=== PATIENT | female | born 1980 | race Caucasian/White ===

== ENCOUNTER → 2016-08-09 | Outpatient (CLI) | payer OTHER ==
[~2016-08-09] MED LIST: LEVO75TA PO; OMEG10007 PO; PRENTAB26 PO
== END | disposition home or self-care (01) ==
LOC: C.LAB 13:22
PROVIDERS: ATTEND Obstetrics & Gynecology
DX: E03.9 Hypothyroidism, unspecified (principal)

== ENCOUNTER → 2016-09-04 | Outpatient (CLI) | payer OTHER | END | disposition home or self-care (01) | LOC: C.LAB 12:11 | PROVIDERS: ATTEND Obstetrics & Gynecology | DX: E03.9 Hypothyroidism, unspecified (principal) ==

== ENCOUNTER → 2016-09-19 | Outpatient (CLI) | payer OTHER | END | disposition home or self-care (01) | LOC: C.LABSPEC 15:19 | PROVIDERS: ATTEND Obstetrics & Gynecology | DX: Z34.83 Encounter for supervision of other normal pregnancy, third trimester (principal) ==

== ENCOUNTER 2016-10-04 07:26 | Inpatient (IN) | payer OTHER ==
--- NOTE | 2016-09-26 18:37 | HISTORY & PHYSICAL EXAMINATION ---
DATE OF ADMISSION: 10/06/2016 CHIEF COMPLAINT: Intrauterine , 39+ weeks' gestation, 2 previous sections. HISTORY OF PRESENT ILLNESS: The patient is a 36-year-old 7, para 2. She has had 4 spontaneous ABs. Her general health is good. She is on thyroid replacement, the dose has recently been changed and knee and it was upped and TSH was under 2. OBSTETRICAL HISTORY: As follows: 2011 - she had a girl, 7 pounds at 38 weeks. She was insulin-dependent, gestational diabetic and section was done for suspected macrosomia. In 2014 - she had another girl, 7 pounds 8 ounces at 39+ weeks gestation, repeat . Present has been well dated. She had a 7-week ultrasound, which gave her due date of 10/08/2016. She has had her thyroid medications adjusted once. Otherwise, she is doing well and is presently being scheduled for repeat section. PAST MEDICAL HISTORY: She has 2 girls in good health. ALLERGIES: She has no known drug allergies. PAST SURGICAL HISTORY: She has had 2 C-sections, 3 D\T\Cs and a uterine septum removed at [facility]. PAST MEDICAL HISTORY: She has history of hypothyroidism which was discovered during one of her pregnancies. SOCIAL HISTORY: No smoking. No alcohol intake. FAMILY HISTORY: Noncontributory. REVIEW OF SYSTEMS: No symptoms of frequent or severe headaches, ear infections, nosebleed, sore throats, kidney or bladder infections. PHYSICAL EXAMINATION: GENERAL: Well-developed, well-nourished 36-year-old white female, alert, oriented x3 and cooperative, in no acute distress, appears her stated age. EYES: Conjunctivae are pink, sclerae white, no evidence of jaundice. EARS: Had normal light reflex bilaterally. NOSE: Had normal mucosa. Septum is midline. There were no polyps. THROAT: No erythema or evidence of infection. Teeth are in good state of repair. HEAD: Normocephalic, normal distribution of hair. NECK: Supple. Trachea midline. Thyroid is not enlarged. There is no adenopathy appreciated. Both carotids are of good intensity. CHEST: Clear to auscultation and percussion. No wheezes, rales or rhonchi appreciated. HEART: Had regular rhythm. S1 and S2 are normal. BREASTS: Normal. ABDOMEN: Revealed term size fetus, vertex presentation, there is a well-healed Pfannenstiel incision. MUSCULOSKELETAL: Revealed no calf tenderness. PELVIC: Vertex presentation. Cervix is anterior and closed. MTDD
--- NOTE | 2016-09-28 09:53 | PAT Medication Instructions ---
Service Date Sep 28, 2016. Current Home Medication List Fish Oil (Waycross-3), 2 CAP PO BID Levothyroxine Sodium (Synthroid), 75 MCG PO QAM Multivit/Min/Iron/Fol Ac/Pren ( Vitamin), 1 TAB PO QAM Medication Instructions For Your Scheduled Surgery - Hold the following medications starting 09/28/16: Fish Oil (Waycross-3), 2 CAP PO BID - Hold the following medications the morning of surgery: Multivit/Min/Iron/Fol Ac/Pren ( Vitamin), 1 TAB PO QAM - Take the following medications the morning of surgery with a sip of water: Levothyroxine Sodium (Synthroid), 75 MCG PO QAM If you have any questions please call us at [phone] (Krystal Aguilar PA-C) or [phone] or [phone]
[2016-09-28 10:47] LABS: BLOOD UREA NITROGEN 9 mg/dl (7-18); CALCIUM 9.1 mg/dl (8.5-10.1); CARBON DIOXIDE 24 mmol/L (21-32); CHLORIDE 108 mmol/L (98-107); CREATININE 0.55 mg/dl (0.60-1.20); GLUCOSE 103 mg/dl (70-99); POTASSIUM 3.8 mmol/L (3.5-5.1); SODIUM 140 mmol/L (136-145)
[2016-09-28 10:51] LABS: INR 0.9 (0.9-1.1); PROTHROMBIN TIME (PATIENT) 9.4 SECONDS (9.0-12.0)
[2016-09-28 11:25] LABS: HEMATOCRIT 37.6 % (37-47); MEAN CELL VOLUME 95.2 fL (80-100); MEAN CORPUSCULAR HEMOGLOBIN 32.4 pg (25-34); MEAN PLATELET VOLUME 12.7 fL (7.4-10.4); PLATELET COUNT 109 K/uL (130-400); RED BLOOD COUNT 3.95 M/uL (4.2-5.4); WHITE BLOOD COUNT 4.28 K/uL (4.8-10.8)
[2016-09-28 11:27] LABS: BASO % 0.2 %; BASO ABS # 0.01 K/uL (0-0.2); COMPLETE YES; EOS % 0.7 %; GIANT PLATELETS 1+; IG% 0.5 %; LYMPH % 25.5 %; LYMPH ABS # 1.09 K/uL (1.2-3.4); MONO % 7.2 %; NEUT % 65.9 %; PLT ESTIMATE DECREASED
[~2016-10-04] VITALS: Ht 165.1 cm; Wt 94.5 kg
[2016-10-06] VITALS (7 sets, daily range): BP systolic 108–124; BP diastolic 66–74; PULSE 84–99; TEMP 36.6–36.8; O2SAT 96–98; Ht 165.1 cm; Wt 94.5 kg
[2016-10-06] MEDS ORDERED: CITRIC ACID/SODIUM CITRATE 15 ML UDC PO SCH (06:00)
[2016-10-06] MEDS ORDERED: LACTATED RINGER'S 1000ML 1,000 ML IV SCH (06:00)
[2016-10-06] MEDS ORDERED: CEFOXITIN IV 2,000 MG in DEXTROSE 5% 50ML 50 ML IV SCH (08:00)
[2016-10-06] MEDS ORDERED: CEFOXITIN SOD 2 GM VIAL IV STA (08:18)
[2016-10-06] MEDS ORDERED: OXYTOCIN INJ 10 UNITS/ML VIAL ONE ×2 (09:05→10:36)
[2016-10-06] MEDS ORDERED: EpHEDrine SULFATE INJ 50 MG/ML AMP ONE (09:05)
[2016-10-06] MEDS ORDERED: MoRPHine SULFATE PF 1 MG/ML 10 ML AMP/VIAL ONE (09:05)
[2016-10-06] MEDS ORDERED: FENTANYL CITRATE INJ 50 MCG/1 ML 2 ML VIAL ONE (09:05)
[2016-10-06] MEDS ORDERED: ONDANSETRON INJ 2 MG/ML 2 ML VIAL ONE ×2 (09:05→11:11)
[2016-10-06 09:11] LABS: HEMATOCRIT 35.6 % (37-47); MEAN CELL VOLUME 92.7 fL (80-100); MEAN CORPUSCULAR HEMOGLOBIN 32.3 pg (25-34); MEAN CORPUSCULAR HGB CONC 34.8 g/dl (32-36); MEAN PLATELET VOLUME 12.7 fL (7.4-10.4); PLATELET COUNT 118 K/uL (130-400); RED BLOOD COUNT 3.84 M/uL (4.2-5.4)
[2016-10-06] MEDS ORDERED: EpHEDrine SULFATE 50MG/5ML SYR ONE (10:23)
[2016-10-06] MEDS ORDERED: BENZOCAINE 20% AER SPR 82.5 GM CAN EXT PRN (11:15)
[2016-10-06] MEDS ORDERED: LANOLIN OINT EXT PRN ×2 (11:15)
[2016-10-06] MEDS ORDERED: MAGNESIUM HYDROXIDE SUSP 30 ML UDC PO PRN (11:15)
[2016-10-06] MEDS ORDERED: SENNA 8.6 MG TAB PO PRN (11:15)
[2016-10-06] MEDS ORDERED: DIPHTHERIA/TETANUS/PERTUSSIS 0.5 ML SYR/VIAL IM. ONE (11:15)
[2016-10-06] MEDS ORDERED: SUPERCREAM 0.870 % 15GM JAR EXT PRN (11:15)
[2016-10-06] MEDS ORDERED: HYDROCORTISONE ACETATE 25 MG SUPP PR PRN (11:15)
[2016-10-06] MEDS ORDERED: NALOXONE HCL INJ 0.08 MG in SYRINGE 1.8 ML IV PRN (11:19)
[2016-10-06] MEDS ORDERED: SODIUM CHLORIDE 0.9% 1000ML 1,000 ML IV PRN (11:19)
[2016-10-06] MEDS ORDERED: LACTATED RINGER'S 1000ML 500 ML IV PRN (11:19)
--- NOTE | 2016-10-06 11:21 | Anesthesiology Progress Note ---
Anesthesia Post Op Note Date & Time Oct 06, 2016 at 11:20 Notes Mental Status: alert / awake / arousable, participated in evaluation Pt Amnestic to Procedure: No Nausea / Vomiting: adequately controlled Pain: adequately controlled Airway Patency, RR, SpO2: stable & adequate BP & HR: stable & adequate Hydration State: stable & adequate Neuraxial Anesthesia: was administered, sensory block is resolving Anesthetic Complications: no major complications apparent Pt had C/S under spinal for h/o previous C/S. Her anesthetic course was uneventful. Recall as expected. Post-op vitals BP 130/65, HR 75, RR 18, SpO2 100 % on RA, T 36.5.
[2016-10-06] MEDS ORDERED: MoRPHine SULFATE 2 MG/ML CARP IV PRN (11:30)
[2016-10-06] MEDS ORDERED: NALBUPHINE HCL INJ 10 MG/ML AMP IV PRN (11:30)
[2016-10-06] MEDS ORDERED: MoRPHine SULFATE PF 1 MG/ML 10 ML AMP/VIAL EPI PRN (11:30)
[2016-10-06] MEDS ORDERED: EpHEDrine SULFATE INJ 50 MG/ML AMP IV PRN (11:30)
[2016-10-06] MEDS ORDERED: KETOROLAC TROMETHAMINE 30 MG/ML VIAL IV. PRN (11:30)
[2016-10-06] MEDS ORDERED: NALOXONE HCL 0.4 MG/1 ML VIAL/CARP IV PRN (11:30)
[2016-10-06] MEDS ORDERED: DC INTRASPINAL MORPHINE SCH (11:30)
[2016-10-06] MEDS ORDERED: MEPERIDINE HCL 25 MG/ML CARP IV PRN (11:30)
[2016-10-06] MEDS ORDERED: DiphenhydrAMINE HCL 50 MG/ML VIAL IV PRN (11:30)
[2016-10-06] MEDS ORDERED: ONDANSETRON INJ 2 MG/ML 2 ML VIAL IV PRN (11:30)
[2016-10-06] MEDS ORDERED: PROMETHAZINE HCL INJ 25 MG in SODIUM CHLORIDE 0.9% 50ML 50 ML IV PRN (11:30)
[2016-10-06] MEDS ORDERED: NO NARCOTICS OR SEDATIVES SCH (11:30)
[2016-10-06] MEDS: OXYTOCIN INJ 20 UNITS in LACTATED RINGER'S 1000ML 1,000 ML IV SCH ×2 (12:00→20:14)
--- NOTE | 2016-10-06 12:38 | OPERATIVE REPORT ---
DATE OF OPERATION: 10/06/2016 PROCEDURE: Repeat low segment section. PREOPERATIVE DIAGNOSES: 1. Intrauterine at term. 2. Two previous sections. POSTOPERATIVE DIAGNOSES: Same, delivered live male . SURGEON: Dr. Wilson. TEACHER EARLY CHILDHOOD DEVELOPMENT: Dr. Wicho Lovell. ESTIMATED BLOOD LOSS: 500 mL ANESTHESIA: Spinal. OPERATIVE FINDINGS AND PROCEDURE: The patient was brought to the OR table, correctly identified by armband and conversation. Compression stockings had been applied. A Gamez catheter had been inserted aseptically and connected to gravity drainage. Lower abdomen was painted with Betadine paint, draped in usual sterile fashion. Level of anesthesia was tested. A Pfannenstiel incision was then made by excising a prior scar and then dissecting down to the anterior fascia. Fascia was incised transversely, from the underlying muscle by blunt and sharp dissection. Recti muscles were in the midline, exposing the peritoneum which was carefully raised and entered. An incision was made in the lower uterine segment above the bladder reflection and uterine cavity was entered, amniotic fluid was clear, and with a vectis retractor, a live was delivered. There was a nuchal cord x1 that had to be reduced over the head. Then, the body of the infant was delivered without difficulty. Cord was clamped and cut. Cord blood was taken. Placenta was removed manually. Uterine cavity was cleansed with a clean sponge. Uterus, tubes and ovaries were brought out through the incision, inspected and found to be normal. The lower uterine segment was repaired using first a deep layer of chromic gut suture and then a second layer over this of heavy Vicryl and there were some [id number] sutures, about 4 of them, that were placed on the edges where there was oozing. Following this, pelvis was cleansed off all blood clots and debris. Uterus, tubes and ovaries were inserted into the incision. Careful anatomical approximation of the anterior abdominal wall was performed. Peritoneum was closed with a mattress suture of chromic catgut. Recti muscles were approximated with interrupted [id number] suture of chromic catgut. Fascia was closed with continuous interlocking suture of Vicryl on each side, tied in the midline. Subcu was approximated with a running plain. Skin edges were approximated with staple clips. I attest to the content of the Intraoperative Record and any orders documented therein. Any exceptio ns are noted below.
[2016-10-06] MEDS: SIMETHICONE 80 MG CHEW PO SCH ×3 (13:00→20:00)
[2016-10-06] MEDS: DOCUSATE SODIUM 100 MG CAP PO SCH (20:00)
[2016-10-07] VITALS (8 sets, daily range): BP systolic 97–110; BP diastolic 58–72; PULSE 88–91; TEMP 36.4–36.8; O2SAT 95–96
[2016-10-07] MEDS: OXYTOCIN INJ 20 UNITS in LACTATED RINGER'S 1000ML 1,000 ML IV SCH (03:53)
[2016-10-07] MEDS ORDERED: MEPERIDINE HCL 75 MG/ML CARP IV PRN (04:00)
[2016-10-07] MEDS ORDERED: KETOROLAC TROMETHAMINE 30 MG/ML VIAL IV. PRN (04:00)
[2016-10-07] MEDS ORDERED: MEPERIDINE HCL 50 MG/ML CARP IV PRN (04:00)
[2016-10-07] MEDS ORDERED: ZOLPIDEM TARTRATE 5 MG TAB PO PRN (04:00)
[2016-10-07] MEDS ORDERED: ONDANSETRON INJ 2 MG/ML 2 ML VIAL IV PRN (04:00)
[2016-10-07] MEDS ORDERED: OXYCODONE/ACETAMINOPHEN 5-325 TAB PO PRN (04:00)
[2016-10-07] MEDS ORDERED: DiphenhydrAMINE HCL 50 MG/ML VIAL IV PRN (04:00)
[2016-10-07 07:28] LABS: MEAN CELL VOLUME 94.9 fL (80-100); MEAN CORPUSCULAR HEMOGLOBIN 32.9 pg (25-34); MEAN CORPUSCULAR HGB CONC 34.7 g/dl (32-36); MEAN PLATELET VOLUME 12.3 fL (7.4-10.4); PLATELET COUNT 88 K/uL (130-400); RED BLOOD COUNT 3.16 M/uL (4.2-5.4); WHITE BLOOD COUNT 4.92 K/uL (4.8-10.8)
[2016-10-07 07:29] LABS: BASO % 0.2 %; BASO ABS # 0.01 K/uL (0-0.2); COMPLETE YES; EOS % 0.8 %; IG% 0.2 %; LARGE PLATELETS 1+; LYMPH ABS # 1.18 K/uL (1.2-3.4); MONO % 6.3 %; NEUT % 68.5 %; PLT ESTIMATE DECREASED
[2016-10-07] MEDS: DOCUSATE SODIUM 100 MG CAP PO SCH ×2 (09:11→21:05)
[2016-10-07] MEDS: SIMETHICONE 80 MG CHEW PO SCH ×4 (09:11→21:05)
[2016-10-07] MEDS: FERROUS SULFATE 325 MG TAB PO SCH (09:11)
[2016-10-07] MEDS: PRENATAL VITAMIN TAB PO SCH (09:11)
[2016-10-07] MEDS: IBUPROFEN 600 MG TAB PO PRN ×2 (09:12→21:04)
[2016-10-07] MEDS: OXYCODONE/ACETAMINOPHEN 5-325 TAB PO PRN ×2 (09:12→21:04)
--- NOTE | 2016-10-07 10:59 | Progress Note ---
Subjective Oct 07, 2016. Subjective conversation w/ patient Ambulation: ambulating normally Voiding: no voiding problems Passing Gas: Yes Diet Tolerance: Clear Liquids Lochia: Small Feeding Type: Breast Feeding Review of Systems Constitutional: + fever Objective Vital Signs Date Time Temp Pulse Resp B/P Pulse Ox O2 Delivery O2 Flow Rate FiO2 10/07/16 08:00 36.8 91 18 97/63 96 Room Air 10/07/16 08:00 96 Room Air 10/07/16 03:50 36.4 90 18 110/72 96 Room Air 10/07/16 03:15 18 96 10/07/16 02:00 18 95 10/07/16 01:15 18 96 10/07/16 00:15 20 96 10/06/16 23:30 36.6 91 20 108/66 98 Room Air 10/06/16 23:30 98 Room Air 10/06/16 23:30 20 98 10/06/16 22:15 18 98 10/06/16 22:15 84 18 124/74 98 Room Air 10/06/16 20:15 36.7 90 18 109/72 96 Room Air 10/06/16 20:15 18 96 10/06/16 19:15 18 97 10/06/16 18:15 18 98 10/06/16 17:15 18 96 10/06/16 16:15 97 Room Air 10/06/16 16:15 36.8 99 18 114/74 97 Room Air 10/06/16 16:15 18 97 10/06/16 16:15 97 Room Air Physical Exam General Appearance: WELL-APPEARING Fundus: Firm, Boggy Incision Description: Clean, Dry & Intact Extremities: no pedal edema, no calf tenderness Laboratory Results Last 24 Hours Test 10/07/16 06:17 White Blood Count 4.92 K/uL Red Blood Count 3.16 M/uL Hemoglobin 10.4 g/dL Hematocrit 30.0 % Mean Corpuscular Volume 94.9 fL Mean Corpuscular Hemoglobin 32.9 pg Mean Corpuscular Hemoglobin Concent 34.7 g/dl Platelet Count 88 K/uL Mean Platelet Volume 12.3 fL Neutrophils (%) (Auto) 68.5 % Lymphocytes (%) (Auto) 24.0 % Monocytes (%) (Auto) 6.3 % Eosinophils (%) (Auto) 0.8 % Basophils (%) (Auto) 0.2 % Neutrophils # (Auto) 3.37 K/uL Lymphocytes # (Auto) 1.18 K/uL Monocytes # (Auto) 0.31 K/uL Eosinophils # (Auto) 0.04 K/uL Basophils # (Auto) 0.01 K/uL RDW Standard Deviation 45.9 fL RDW Coefficient of Variation 13.2 % Immature Granulocyte % (Auto) 0.2 % Immature Granulocyte # (Auto) 0.01 K/uL Platelet Estimate DECREASED Large Platelets 1+ Assessment and Plan Post-Op Day#: 1
[2016-10-07] MEDS ORDERED: BISACODYL 5 MG TABEC PO ONE (22:00)
[2016-10-08 00:25] VITALS: BP 93/59; PULSE 101; TEMP 36.5
[2016-10-08 07:20] VITALS: BP 110/70; PULSE 91; TEMP 36.7; O2SAT 96
[2016-10-08] MEDS: DOCUSATE SODIUM 100 MG CAP PO SCH ×2 (07:34→19:44)
[2016-10-08] MEDS: LEVOTHYROXINE 75 MCG TAB PO SCH (07:34)
[2016-10-08] MEDS: FERROUS SULFATE 325 MG TAB PO SCH (07:34)
[2016-10-08] MEDS: PRENATAL VITAMIN TAB PO SCH (07:34)
[2016-10-08] MEDS: IBUPROFEN 600 MG TAB PO PRN ×3 (07:35→18:34)
[2016-10-08] MEDS: SIMETHICONE 80 MG CHEW PO SCH ×4 (07:35→19:44)
[2016-10-08] MEDS: OXYCODONE/ACETAMINOPHEN 5-325 TAB PO PRN ×3 (07:35→18:35)
--- NOTE | 2016-10-08 08:29 | Progress Note ---
Subjective Oct 08, 2016. Subjective conversation w/ patient Ambulation: ambulating normally Voiding: no voiding problems Passing Gas: Yes Diet Tolerance: Regular Diet Lochia: Small Feeding Type: Breast Feeding Review of Systems Constitutional: + fever Objective Vital Signs Date Time Temp Pulse Resp B/P Pulse Ox O2 Delivery O2 Flow Rate FiO2 10/08/16 07:20 36.7 91 18 110/70 Room Air 10/08/16 07:20 96 Room Air 10/08/16 00:25 Room Air 10/08/16 00:25 36.5 101 18 93/59 Room Air 10/07/16 16:00 36.7 89 18 102/67 Room Air 10/07/16 16:00 Room Air 10/07/16 11:40 36.7 88 18 100/58 Room Air Physical Exam General Appearance: WELL-APPEARING Respiratory/Chest: lungs clear Abdomen: normal bowel sounds, non tender Fundus: Firm, Non-Tender Incision Description: Clean, Dry & Intact Extremities: no pedal edema, no calf tenderness Laboratory Results Last 24 Hours Test 10/07/16 11:34 Thyroid Stimulating Hormone (TSH) 2.680 uIu/ml Assessment and Plan Post-Op Day#: 2
[2016-10-08] MEDS ORDERED: BISACODYL 10 MG SUPP PR PRN (11:15)
[2016-10-08 16:15] VITALS: BP 108/68; PULSE 93; TEMP 36.6; O2SAT 94
[2016-10-08 23:55] VITALS: BP 112/74; PULSE 82; TEMP 36.4; O2SAT 98
[2016-10-09] MEDS: IBUPROFEN 600 MG TAB PO PRN ×2 (02:30→10:50)
[2016-10-09] MEDS: LEVOTHYROXINE 75 MCG TAB PO SCH (07:20)
[2016-10-09] MEDS: DOCUSATE SODIUM 100 MG CAP PO SCH (07:20)
[2016-10-09] MEDS: SIMETHICONE 80 MG CHEW PO SCH (07:20)
[2016-10-09] MEDS: PRENATAL VITAMIN TAB PO SCH (07:20)
[2016-10-09] MEDS: FERROUS SULFATE 325 MG TAB PO SCH (07:21)
[2016-10-09 07:30] VITALS: BP 120/82; PULSE 86; TEMP 36.5
[2016-10-09 08:23] VITALS: BP_DIAS 82; PULSE 86; TEMP 36.5
--- NOTE | 2016-10-09 09:14 | Progress Note ---
Subjective Oct 09, 2016. Subjective conversation w/ patient Ambulation: ambulating normally Voiding: no voiding problems Passing Gas: Yes Diet Tolerance: Regular Diet Lochia: Small Feeding Type: Breast Feeding Review of Systems Constitutional: + fever Objective Vital Signs Date Time Temp Pulse Resp B/P Pulse Ox O2 Delivery O2 Flow Rate FiO2 10/09/16 08:23 36.5 86 16 10/09/16 07:30 36.5 86 16 120/82 10/09/16 07:30 Room Air 10/08/16 23:55 98 Room Air 10/08/16 23:55 36.4 82 20 112/74 Room Air 10/08/16 16:15 36.6 93 18 108/68 94 Room Air 10/08/16 16:15 94 Room Air Physical Exam General Appearance: WELL-APPEARING Respiratory/Chest: lungs clear Abdomen: normal bowel sounds, non tender Fundus: Firm, Non-Tender Incision Description: Clean, Dry & Intact Extremities: no pedal edema, no calf tenderness Assessment and Plan Post-Op Day#: 3
--- NOTE | 2016-10-09 09:16 | Discharge Instructions ---
Discharge Instructions Date of Service Oct 09, 2016. Admission Reason for Admission: Term , Previous Section Discharge Discharge Diagnosis / Problem: previous section Discharge Goals Goal(s): Routine recovery after Activity Recommendations Activity Limitations: as noted below ACTIVITY RECOMMENDATIONS: * Gradual return to full activity over the next 2-3 weeks. * No lifting - nothing heavier than baby over the next 2-3 weeks. * Do not engage in vigorous exercise, sexual activity or sports for 6 weeks. * Do not drive or operate any motorized equipment for 14 days. * You may shower/bathe daily. DIET: Resume Previous Diet If Breast-feeding: * Increase caloric intake by 500 calories, eat 3 well balanced meals, 2 high protein snacks a day and drink 6-8 8oz. glasses of fluid per day. BREAST CARE: If you are not breast feeding: * Wear a supportive bra 24 hours a day for one to two weeks. * Avoid stimulating your breasts and nipples as much as possible during the first few weeks after delivery. * When taking a shower, have the warm water hit your back, not breasts. * When your breasts feel full, apply ice packs. Usually three to four times a day helps ease the discomfort. * Take a mild pain medication (Tylenol / Motrin) when you are uncomfortable. If breast feeding: * Use breast milk to lubricate nipples. Lansinoh cream may be used for sore nipples. You do not need to remove cream prior to breast feeding. If using a different brand of cream, check the label for directions regarding removal of cream prior to nursing. * Wear a supportive bra. * If having problems with breasts or breast feeding, call a business management consultant or your health care provider. VITAMINS: * One tablet daily. Continue taking while or until you have your check up in 6 weeks. SPECIAL CARE INSTRUCTIONS: * Vaginal rest (no tampons, douching, intercourse) until after doctor's visit. * control as discussed with doctor. * Verbalizes understanding of car seat law as reviewed with patient by nursing. * Car Seat hand-out given and reviewed with patient by nursing. * Shaken baby information reviewed with patient by nursing. Call you doctor if: * Heavy bleeding (saturating a pad an hour) or passing clots the size of your fist. Bleeding has a foul smelling odor. * A fever greater than 100.4 degrees F (38 degrees C) on two occasions four hours apart and/or chills. * Unusual pain in the pelvic or vaginal areas. Pain should improve each day . * Call the doctor for any increased redness, drainage or swelling around the incision and any pain unrelieved by prescribed pain medication. * Signs and symptoms of phlebitis(possible blood clots forming in the veins): leg pain, warm, red or swollen area on leg. * "Baby Blues" lasting longer than two weeks. If you have any questions or concerns, call your health care practitioner at [phone]. FOLLOW-UP VISIT: Follow-up visit for examination in 6 weeks. Incision check (staple removal) in 1 week. Please call office at [phone] if not already scheduled. . Current Hospital Diet Patient's current hospital diet: Regular OB Diet Discharge Diet Recommended Diet: Regular Diet Procedures Procedures Performed: Repeat caesarean section. Delivery of live male child at 1017. Pending Studies Studies pending at discharge: no Medical Emergencies . Who to Call and When: Medical Emergencies: If at any time you feel your situation is an emergency, please call 911 immediately. . Non-Emergent Contact Non-Emergency issues call your: Gas Meter Prover Call Non-Emergent contact if: temperature is above 100.5 . . "Provider Documentation" section prepared by Alex Wilson. VTE Core Measure Inpt VTE Proph given/why not?: Treatment not indicated
--- NOTE | 2016-10-09 09:45 | DISCHARGE SUMMARY ---
Pilar Mccormick is the patient that had 2 previous sections. She is also on thyroid replacement. She was admitted for her third section at 39 weeks and 2 days. On the day of admission, she was given prophylactic antibiotics and antacids, taken to the OR where under spinal anesthesia, she delivered a live infant. Infant was in good condition. Postoperatively, the patient did well. She remained afebrile. Her bowel sounds returned within 24 hours. Her preoperative hemoglobin was 12.8, hematocrit 37.6. Postoperatively, hemoglobin fell to 10.4, hematocrit 30.0. At time of discharge, the patient's pain was well controlled with Motrin and occasional Percocet. She was ambulating well, eating well, passing gas, incision was clean and dry. She was given scripts for Percocet and Motrin and also script for a breast pump, told to return in the office in about 3-4 days for removal of the fatuma. MARS
== END 2016-10-09 13:00 | disposition home or self-care (01) | DRG 766 ==
LOC: EDSTATUS 13:19 → C.LD 10-06 07:16 → C.OBG 10-06 16:35
PROVIDERS: ADMIT Obstetrics & Gynecology; ATTEND Obstetrics & Gynecology
PROC: 10D00Z1 Extraction of Products of Conception, Low, Open Approach (ICD-10-PCS; principal; 2016-10-06 09:00)
DX: O34.211 Maternal care for low transverse scar from previous cesarean delivery (principal); O24.414 Gestational diabetes mellitus in pregnancy, insulin controlled; O69.81X0 Labor and delivery complicated by cord around neck, without compression, not applicable or unspecified; E03.9 Hypothyroidism, unspecified; O99.284 Endocrine, nutritional and metabolic diseases complicating childbirth; Z3A.39 39 weeks gestation of pregnancy; Z37.0 Single live birth

== ENCOUNTER → 2017-01-30 | Outpatient (CLI) | payer OTHER ==
[2017-01-30 12:20] LABS: BASO % 0.4 %; BASO ABS # 0.02 K/uL (0-0.2); COMPLETE YES; EOS % 2.7 %; HEMATOCRIT 42.2 % (37-47); IG% 0.2 %; LYMPH % 44.9 %; LYMPH ABS # 2.02 K/uL (1.2-3.4); MEAN CELL VOLUME 90.9 fL (80-100); MEAN CORPUSCULAR HEMOGLOBIN 30.4 pg (25-34); MEAN CORPUSCULAR HGB CONC 33.4 g/dl (32-36); MEAN PLATELET VOLUME 12.1 fL (7.4-10.4); MONO % 6.4 %; NEUT % 45.4 %; PLATELET COUNT 187 K/uL (130-400); RED BLOOD COUNT 4.64 M/uL (4.2-5.4)
[2017-01-30 12:53] LABS: ALT/SGPT 34 U/L (12-78); BLOOD UREA NITROGEN 13 mg/dl (7-18); BUN/CREATININE RATIO 15.1 (10-20); CALCIUM 9.2 mg/dl (8.5-10.1); CARBON DIOXIDE 29 mmol/L (21-32); CHLORIDE 107 mmol/L (98-107); CHOLESTEROL 209 mg/dl (0-200); CREATININE 0.88 mg/dl (0.60-1.20); GLUCOSE 70 mg/dl (70-99); POTASSIUM 4.2 mmol/L (3.5-5.1); SODIUM 140 mmol/L (136-145); TRIGLYCERIDES 100 mg/dl (0-150); VERY LOW DENSITY LIPOPROT CALC 20 mg/dl
[2017-01-30 13:03] LABS: ALKALINE PHOSPHATASE 66 U/L (45-117); AST/SGOT 16 U/L (15-37); CHOLESTEROL/HDL RATIO 3.9; HDL CHOLESTEROL 54 mg/dl; LDL CHOLESTEROL CALCULATED 135 mg/dl
== END | disposition home or self-care (01) ==
LOC: C.LAB 11:09
PROVIDERS: ATTEND Nurse Practitioner Adult Health
DX: Z00.00 Encounter for general adult medical examination without abnormal findings (principal); F41.8 Other specified anxiety disorders

== ENCOUNTER → 2017-06-12 | Outpatient (CLI) | payer OTHER ==
[2017-06-12 17:56] LABS: THYROID STIMULATING HORMONE 1.26 uIu/ml (0.300-4.500)
[2017-06-14 14:40] LABS: MICROSOMAL AB <1 IU/ML (<9)
== END | disposition home or self-care (01) ==
LOC: C.LABBC 13:56
PROVIDERS: ATTEND Nurse Practitioner Adult Health
DX: E03.9 Hypothyroidism, unspecified (principal); R53.83 Other fatigue

== ENCOUNTER → 2017-06-29 | Outpatient (CLI) | payer OTHER | END | disposition home or self-care (01) | LOC: C.LABSPEC 13:18 | PROVIDERS: ATTEND Dermatology | DX: L21.0 Seborrhea capitis (principal) ==